=== PATIENT | female | born 1980 | race Caucasian/White ===

== ENCOUNTER 2019-08-17 06:22 | Inpatient (IN) | payer OTHER ==
[~2019-08-17] VITALS: Ht 167.6 cm; Wt 103.2 kg
[~2019-08-17 06:22] MED LIST: PREN1TAB60 PO
[2019-08-17] MEDS ORDERED: OXYTOCIN 30U/ 0.9% NaCL 500ML 500 ML IV ONE (06:35)
[2019-08-17] MEDS ORDERED: D5%-LACTATED RINGERS 1,000 ML IV SCH (06:35)
[2019-08-17] MEDS ORDERED: OXYTOCIN 30U/ 0.9% NaCL 500ML 500 ML IV PRN (06:35)
[2019-08-17] MEDS ORDERED: NEWBORN KIT ONE (06:41)
[2019-08-17] MEDS ORDERED: LIDOCAINE 1%, 20ML ONE (06:41)
[2019-08-17] MEDS ORDERED: MISOPROSTOL 200 MCG TABLET ONE (06:41)
[2019-08-17] MEDS ORDERED: CALCIUM CARBONATE 500 MG TAB.CHEW PO PRN (07:00)
[2019-08-17] MEDS ORDERED: FENTANYL PF 100 MCG/2ML IV PRN (07:00)
[2019-08-17] MEDS ORDERED: TERBUTALINE 1 MG/ML, 1ML IVPush PRN (07:00)
[2019-08-17] MEDS ORDERED: TERBUTALINE 1 MG/ML, 1ML SQ PRN (07:00)
[2019-08-17] MEDS ORDERED: METOCLOPRAMIDE 5 MG/ML, 2ML IVPush PRN (07:00)
[2019-08-17] MEDS ORDERED: FENTANYL PF 100 MCG/2ML IVPush PRN (07:00)
[2019-08-17] MEDS ORDERED: ONDANSETRON 2MG/ML, 2ML IVPush PRN (07:00)
[2019-08-17 07:05] VITALS: BP 119/73
[2019-08-17 07:08] LABS: BASOPHILS # (AUTO) 0.04 x10^3/uL (0-0.1); BASOPHILS % (AUTO) 0 % (0-1); EOSINOPHILS # (AUTO) 0.09 x10^3/uL (0-0.4); EOSINOPHILS % (AUTO) 1 % (1-7); LYMPHOCYTES % (AUTO) 25 % (22-44); MD NO; MEAN CORPUSCULAR HEMOGLOBIN 33.6 pg (27.0-34.8); MEAN CORPUSCULAR HGB CONC 33.2 g/dL (32.4-35.8); MEAN CORPUSCULAR VOLUME 101.4 fL (80-100); MEAN PLATELET VOLUME 7.3 fL (7.4-10.4); MONOCYTES # (AUTO) 0.79 x10^3/uL (0.2-0.8); MONOCYTES % (AUTO) 9 % (2-9); NEUTROPHILS # (AUTO) 5.39 x10^3/uL (1.8-6.8); NEUTROPHILS % (AUTO) 64 % (42-75); PLATELET COUNT 323 x10^3/uL (130-400); RED BLOOD COUNT 4.04 x10^6/uL (3.82-5.3); RED CELL DISTRIBUTION WIDTH 13.8 % (9.6-15.2)
[2019-08-17] MEDS: LACTATED RINGERS 1,000 ML IV SCH ×3 (07:08→11:43)
[2019-08-17] MEDS ORDERED: OXYTOCIN 30U/ 0.9% NaCL 500ML 500 ML ONE ×2 (07:13→14:48)
[2019-08-17] MEDS ORDERED: FENTANYL/BUPIV./NS/PF 250 ML EPIDCONT SCH (07:27)
[2019-08-17] MEDS ORDERED: BUPIVACAINE 0.25% ONE (09:38)
[2019-08-17] MEDS: OXYTOCIN 30U/ 0.9% NaCL 500ML 500 ML IV SCH (14:47)
[2019-08-17] MEDS ORDERED: IBUPROFEN 600 MG TABLET ONE (14:48)
[2019-08-17] MEDS: IBUPROFEN 600 MG TABLET PO PRN ×2 (14:51→21:17)
[2019-08-17] MEDS ORDERED: CARBOPROST TROMETHAMINE 250 MCG/ML, 1ML IM PRN (15:00)
[2019-08-17] MEDS ORDERED: ONDANSETRON 2MG/ML, 2ML IV PRN (15:00)
[2019-08-17] MEDS ORDERED: MISOPROSTOL 200 MCG TABLET PR PRN (15:00)
[2019-08-17] MEDS ORDERED: OXYcodone IR 5MG TABLET PO PRN ×2 (15:00)
[2019-08-17] MEDS ORDERED: SIMETHICONE 80 MG CHEW TAB PO PRN (15:00)
[2019-08-17] MEDS ORDERED: METHYLERGONOVINE 0.2 MG/ML IM PRN (15:00)
[2019-08-17 16:40] VITALS: BP 105/71
[2019-08-17 19:15] VITALS: BP 116/76
[2019-08-17] MEDS: DOCUSATE 100 MG CAPSULE PO PRN (19:35)
[2019-08-17] MEDS: ACETAMINOPHEN 325 MG TABLET PO PRN (19:35)
[2019-08-18 00:30] VITALS: BP 111/60
[2019-08-18] MEDS: OXYTOCIN 30U/ 0.9% NaCL 500ML 500 ML IV SCH ×2 (00:47→03:03)
[2019-08-18 04:15] VITALS: BP 108/76
[2019-08-18 05:53] LABS: BASOPHILS # (AUTO) 0.02 x10^3/uL (0-0.1); BASOPHILS % (AUTO) 0 % (0-1); EOSINOPHILS # (AUTO) 0.05 x10^3/uL (0-0.4); EOSINOPHILS % (AUTO) 1 % (1-7); LYMPHOCYTES # (AUTO) 1.52 x10^3/uL (1-3.4); LYMPHOCYTES % (AUTO) 19 % (22-44); MD NO; MEAN CORPUSCULAR HEMOGLOBIN 33.9 pg (27.0-34.8); MEAN CORPUSCULAR HGB CONC 33.1 g/dL (32.4-35.8); MEAN CORPUSCULAR VOLUME 102.4 fL (80-100); MEAN PLATELET VOLUME 7.3 fL (7.4-10.4); MONOCYTES # (AUTO) 0.56 x10^3/uL (0.2-0.8); MONOCYTES % (AUTO) 7 % (2-9); NEUTROPHILS # (AUTO) 5.85 x10^3/uL (1.8-6.8); NEUTROPHILS % (AUTO) 73 % (42-75); PLATELET COUNT 259 x10^3/uL (130-400); RED BLOOD COUNT 3.58 x10^6/uL (3.82-5.3); RED CELL DISTRIBUTION WIDTH 13.7 % (9.6-15.2)
[2019-08-18] MEDS: IBUPROFEN 600 MG TABLET PO PRN ×4 (06:31→21:30)
[2019-08-18] MEDS: ACETAMINOPHEN 325 MG TABLET PO PRN ×3 (06:31→19:40)
[2019-08-18] MEDS: PRENATAL VIT/IRON/FA 1 EACH TABLET PO SCH (07:48)
[2019-08-18 08:00] VITALS: BP 108/63
[2019-08-18 19:45] VITALS: BP 113/75
[2019-08-18] MEDS: DOCUSATE 100 MG CAPSULE PO PRN (21:30)
[2019-08-19] MEDS: OXYTOCIN 30U/ 0.9% NaCL 500ML 500 ML IV SCH (05:52)
[2019-08-19] MEDS: DOCUSATE 100 MG CAPSULE PO PRN (07:17)
[2019-08-19] MEDS: PRENATAL VIT/IRON/FA 1 EACH TABLET PO SCH (07:17)
[2019-08-19] MEDS: IBUPROFEN 600 MG TABLET PO PRN (07:17)
[2019-08-19 08:00] VITALS: BP 108/74
[2019-08-19] MEDS ORDERED: HYDR-3240 PO (09:33)
[2019-08-19] MEDS ORDERED: IBUP200T49 PO (09:33)
[2019-08-19] MEDS ORDERED: DOCU-131 PO (09:34)
== END 2019-08-19 10:50 | disposition home or self-care (01) | DRG 807 ==
LOC: LDIP 06:22 → 2NW 16:45
PROVIDERS: ADMIT Obstetrics & Gynecology Maternal & Fetal Medicine; ATTEND Obstetrics & Gynecology Maternal & Fetal Medicine
PROC: 10E0XZZ Delivery of Products of Conception, External Approach (ICD-10-PCS; principal; 2019-08-17)
PROC: 0KQM0ZZ Repair Perineum Muscle, Open Approach (ICD-10-PCS; 2019-08-17)
PROC: 10907ZC Drainage of Amniotic Fluid, Therapeutic from Products of Conception, Via Natural or Artificial Opening (ICD-10-PCS; 2019-08-17)
PROC: 3E0R3BZ Introduction of Anesthetic Agent into Spinal Canal, Percutaneous Approach (ICD-10-PCS; 2019-08-17)
PROC: 00HU33Z Insertion of Infusion Device into Spinal Canal, Percutaneous Approach (ICD-10-PCS; 2019-08-17)
PROC: 3E033VJ Introduction of Other Hormone into Peripheral Vein, Percutaneous Approach (ICD-10-PCS; 2019-08-17)
DX: O70.1 Second degree perineal laceration during delivery (principal); Z37.0 Single live birth; Z3A.39 39 weeks gestation of pregnancy
CPT/HCPCS: 36415; 85025; 86850; 86900; G0378; J2590; J3010; J7120